=== PATIENT | female | born 1950 | race Two or more races ===

== ENCOUNTER 2021-11-01 03:32 | Emergency (ER) | payer MEDICARE, BC ==
[~2021-11-01] VITALS: Ht 152.4 cm; Wt 67.6 kg
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
[2021-11-01] MEDS ORDERED: HYDROCODONE/APAP 5/325MG TABLET ONE (05:02)
[2021-11-01] MEDS: HYDROCODONE/APAP 5/325MG TABLET PO ONE (05:08)
[2021-11-01] MEDS ORDERED: OXYC5CAP18 PO (05:14)
[2021-11-01] MEDS ORDERED: NAPR-1009 PO (05:14)
--- NOTE | 2021-11-01 05:43 | NUR ---
Patient discharged to home in stable condition. CD Written and verbal after care instructions given. Patient verbalizes understanding of instruction. PT ambulatory with a steady gait
[2021-11-01 05:44] VITALS: BP 125/71
== END 2021-11-01 05:44 | disposition home or self-care (01) ==
LOC: ER 03:34
DX: S42.021A Displaced fracture of shaft of right clavicle, initial encounter for closed fracture (principal); M25.511 Pain in right shoulder; I10 Essential (primary) hypertension; Z88.8 Allergy status to other drugs, medicaments and biological substances; Z79.899 Other long term (current) drug therapy; W01.0XXA Fall on same level from slipping, tripping and stumbling without subsequent striking against object, initial encounter; Y93.89 Activity, other specified; Y92.89 Other specified places as the place of occurrence of the external cause; Y99.8 Other external cause status
CPT/HCPCS: 73000-TC; 73030-TC